=== PATIENT | male | born 1940 | race Caucasian/White ===

== ENCOUNTER 2017-12-01 16:11 | Inpatient (IN) | payer MEDICARE, OTHER ==
[~2017-12-01] VITALS: Ht 177.8 cm; Wt 107.0 kg
[~2017-12-01 16:11] MED LIST: ALLOPURINOL 30300 M2 PO; MOBIC15 MG PO
[2017-12-01] MEDS ORDERED: TYLENOL EXTRA500 MG PO (17:07)
[2017-12-01] MEDS ORDERED: NORVASC5 MG PO (17:08)
[2017-12-01] MEDS ORDERED: ALLOPURINOL 10100 M1 PO (17:08)
[2017-12-01] MEDS ORDERED: ELIQUIS2.5 MG PO (17:09)
[2017-12-01] MEDS ORDERED: BISACODYL SUPP10 MG RECTAL (17:10)
[2017-12-01] MEDS ORDERED: DULCOLAX5 MG PO (17:11)
[2017-12-01] MEDS ORDERED: COLACE100 MG PO (17:12)
[2017-12-01] MEDS ORDERED: TUMS PO (17:12)
[2017-12-01] MEDS ORDERED: NEURONTIN 300300 M1 PO (17:13)
[2017-12-01] MEDS ORDERED: IPRAT-ALBUT 0.5-3 ML INH (17:14)
[2017-12-01] MEDS ORDERED: MILK OF MA2400 MG/10 PO (17:15)
[2017-12-01] MEDS ORDERED: OXYCODONE HCL 55 MG PO (17:16)
[2017-12-01] MEDS ORDERED: VANCO1GM IVPB (17:17)
[2017-12-01] MEDS ORDERED: VITAMIN D2000 UNIT PO (17:18)
[2017-12-01 19:35] VITALS: BP 123/58
--- NOTE | 2017-12-02 01:57 | NUR ---
ASSUMED CARE UPON ADMISSION TO ROOM 326 AT 1930. ADMITTED FROM [facility] PER W/C VAN. PATIENT UP WITH MAX ASSIST OF TWO, PATIENT RELUCTANT TO BEAR WEIGHT ON RIGHT FOOT. STAND PIVOT, MUCH CUEING AND ENCOURAGEMENT. DRESSING TO RIGHT KNEE C/D/I. HAS THREE OPEN SCABBED AREA TO RIGHT FOOT THAT PATIENT STATES IS FROM ABRASIONS FROM THE [facility] AT [facility]. SEE PICTURE. PATIENT ABLE TO MOVE SELF UP IN BED USING ARMS AND HAND HOLDS AT HEAD OF BED. BILAT ANKLES EDEMATOUS. BILAT HEELS OFFLOADED. REFUSES DIANA HOSE, REFUSES TO WEAR YELLOW SOCKS WHILE IN BED. ABLE TO MOVE SIDE TO SIDE, BUT ASSISTED WITH TURNS. MIDLINE IV SITE TO LEFT ARM INTACT, FLUSHES WELL, DRESSING INTACT--WAS CHANGED 12/01 PRIOR TO TRANSFER TO [facility]. REMOVED PANTS AT HS, VOIDS PER URINAL, NURSING EMPTIES. STATES THAT HE HAS BEEN USING SLIDING BOARD AT HOME TO GET ON OFF COMMODE, AND HASN'T BEEN WALKING MUCH AT ALL. INSTRUCTED IN REHAB ROUTINE, USE OF CALL LITE, FALL PRECAUTIONS AND DISCHARGE PLANNING. STATES HE IS NOT IN PAIN UNLESS HE MOVES HIS LEG. REFUSED COLACE AND OTHER LAXATIVES, STATING HE HAS HAD LOOSE STOOLS LATELY. ASSESSMENT COMPLETE, MEDICINES RECONCILED. HOURLY ROUNDS CONTINUE. BED ALARM ON. CALL LITE IN REACH.
[2017-12-02 04:14] LABS: HEMATOCRIT 26.9 % (42.0-52.0); HEMOGLOBIN 8.9 gm/dL (14.0-18.0); MCH 32.4 pg (26.0-34.0); MCHC 33.1 g/dL (28.0-37.0); MCV 97.7 fL (80.0-100.0); MPV 8.7 fl. (7.2-11.1); RBC 2.76 mil/uL (4.50-6.00); RDW-CV 15.6 % (10.5-14.5); WBC 6.6 thou/uL (4.0-11.0)
[2017-12-02 04:44] LABS: CALCIUM 8.5 mg/dL (8.5-10.1); CREATININE 0.7 mg/dL (0.6-1.3); POTASSIUM 4.2 mmol/L (3.5-5.1)
--- NOTE | 2017-12-02 05:25 | NUR ---
SLEPT AFTER ABOUT 2229. SNORING RESPIRATIONS NOTED. MIDLINE IV LINE FLUSHES WELL. ATTEMPTED TO LIE ON SIDE, BUT HIS LEG BEGAN TO HURT AND HE WANTED TO LIE ON BACK DESPITE EDUCATION ABOUT NEEDING TO TURN MORE OFTEN. HOURLY ROUNDS CONTINUE. BED ALARM ON. CALL LITE IN REACH. VOIDS PER URINAL ABOUT EVERY 1-2 HOURS.
[2017-12-02 08:15] VITALS: BP 129/68
--- NOTE | 2017-12-02 16:58 | NUR ---
PATIENT HAS BEEN A/O X 4 THIS SHIFT, APPROPRIATE AND PLEASANT. PATIENT CONTINUES ON SCHEDULED TYLENOL WITH GOOD EFFECT. GIVEN OXY IR X 1 PRIOR TO MORNING SESSION OF PHYSICAL THERAPY. PATIENT PARTICIPATED WITH OCCUPATIONAL AND PHYSICAL THERAPY THIS SHIFT. PATIENT UP TO CHAIR WITH MODERATE ASSIST, GB AND WALKER. PATIENT VOIDING PER URINAL, HAS SPILLED URINAL X 1 THIS SHIFT AND MISSED COMODE WITH URINE THIS MORNING. PATIENT ABLE TO HAVE BM THIS AM. PATIENT TOLERATING DIET, TAKING ORAL FLUIDS IN WELL. DRESSING TO RIGHT KNEE INTACT. MIDLINE PATENT TO LEFT UPPER ARM, IV ANTIBIOTICS INFUSED. PATIENT TO DINING ROOM FOR MEALS. AT BEDSIDE THIS EVENING. HOURLY ROUNDING COMPLETED THIS SHIFT. CALL LIGHT WITHIN REACH. WILL CONTINUE WITH PLAN OF CARE.
[2017-12-02 22:18] VITALS: BP 129/60
--- NOTE | 2017-12-02 22:25 | NUR ---
ASSUMED CARE AT 1930. PATIENT RESTING IN BED. HEELS OFFLOADED ESPECIALLY RLE. BILAT LEGS EDEMATOUS. THREE AREAS TO RIGHT ANKLE C/D/I, HUSEYIN AND IMPROVING. DRESSING TO RT KNEE C/D/I. DRESSING TO LT UPPER ARM IV LINE C/D/I. TOOK SCHEDULED APAP FOR PAIN. NEW ORDER FOR FLEXARIL STARTED TONIGHT, AND STOP DATE FOR VANCO CLARIFIED. OBSERVED SLEEPING ON LATER ROUNDS. DECLINED MEDS FOR BM TONOC. VOIDS PER URINAL. VERBALIZES THAT HE NEEDS TO TURN, BUT HAS DIFFICULTY FINDING POSITIONS THAT DO NOT CAUSE PAIN. HOURLY ROUNDS CONTINUE. BED ALARM ON. CALL LITE IN REACH.
--- NOTE | 2017-12-03 05:18 | NUR ---
HAD TROUBLE SLEEPING. PATIENT C/O LEG CRAMPS DESPITE HS DOSE OF FLEXARIL. OBSERVED GRIMACING WITH APPARENT SPASMS OF LEFT LEG. GAVE OXY IR 5 MG AT 9 (DOSE IS 5-10 MG) AND HAD NO RELIEF AND REPEATED 5 MORE MG AT 213. ALSO GAVE FLEXARIL AGAIN AT 214. SEE MAR. PATIENT STATES THAT HE GETS THESE CRAMPS AT HOME, AND THE ONLY THING THAT HELPS IS TO GET UP INTO A CHAIR. ASSISTED TO RECLINER, UP WITH TWO, CUEING, GAIT BELT, WALKER. PATIENT ELEVATED LEG REST AND PUT OPERATIVE LEG UP ON LEG REST, AND THE OTHER LEG IN DEPENDENT POSITION. WAS READING, AND OBSERVED PATIENT SLEEPING ABOUT 20 MINUTES LATER. NO FURTHER C/O PAIN OR CRAMPING AND APPEARS COMFORTABLE. MIDLINE IV CATHETER FLUSHES WELL, IVPB INFUSED. HOURLY ROUNDS CONTINUE. BED ALARM ON. CALL LITE IN REACH.
[2017-12-03 09:24] VITALS: BP 157/64
[2017-12-03 09:30] VITALS: BP 157/64
--- NOTE | 2017-12-03 17:46 | NUR ---
PATIENT HAS BEEN A/O X 4 THIS SHIFT. CONTINUES ON SCHEDULED TYLENOL FOR RIGHT KNEE PAIN WITH GOOD RELIEF. PATIENT HAVING MUSCLE SPASMS THIS AFTERNOON AND FLEXERIL GIVEN WITH PARTIAL RELIEF. PATIENT CONTINUES ON IV ANTIBIOTICS, LEFT UPPER ARM MIDLINE PATENT AND WORKS WELL. PATIENT UP WITH 2 PERSON ASSIST TO WHEELCHAIR WITH GB AND WALKER. PATIENT COMPLETED GROOMING AND BATHING THIS SHIFT WITH MINIMAL ASSIST. PATIENT SUPERVISION WITH UPPER BODY DRESSING. PATIENT ABLE TO HAVE BM THIS SHIFT, ASSISTED PATIENT TO BATHROOM WITH WHEELCHAIR, WALKER, GB AND USING GRAB BAR. PATIENT ABLE TO DO OWN REGULO-CARE, NEEDS HELP WITH CLOTHING MANAGEMENT. PATIENT EATING WELL AND TAKING ORAL FLUIDS WELL. DRESSING INTACT TO RIGHT KNEE. PATIENT'S AT BEDSIDE THIS AFTERNOON. HOURLY ROUNDING COMPLETED. CALL LIGHT WITHIN REACH. WILL CONTINUE WITH PLAN OF CARE.
[2017-12-03 20:42] VITALS: BP 139/61
--- NOTE | 2017-12-04 00:01 | NUR ---
ASSUMED CARE AT 1930. PATIENT RESTING IN BED UNTIL AROUND 2014 AND THEN WANTED TO SIT ON SIDE OF BED. C/O LEG CRAMPS ON RIGHT LEG. SITTING ON SIDE OF BED HELPED FOR A WHILE, BUT LATER WANTED TO REST IN RECLINER WITH LEGS UP THAT HELPS THE MOST. MEDICINES REVIEWED WITH PATIENT. PATIENT IS DOUGLAS AND NEEDS MUCH REINFORCEMENT. THOUGHT HE GOT TWO DIFFERENT MUSCLE RELAXERS WHEN HE WAS TOLD HE COULD HAVE IT AT BEDTIME AND NEEDED, WHEN IN REALITY THIS WAS FLEXARIL SCHEDULED AT HS AND Q6H PRN. OFFERED OXYIR, BUT PATIENT REFUSED. DID TAKE SCHEDULED APAP. UP WITH MOD LIFTING ASSIST, GAIT BELT, WALKER, TO RECLINER WITH EXTRA TIME AND CUEING. WBAT RLE. DOES NOT APPEAR TO PUT MUCH WEIGHT ON RLE. ISLAND DRESSING C/D/I. SCABS TO RT FOOT SCULPTURE INSTRUCTOR AND APPEAR HEALING. REFUSES DIANA HOSE. ENCOURAGED TO ELEVATE LEGS WHILE IN RECLINER, AND WHILE IN RECLINER HEELS ARE OFFLOADED. VOIDS PER URINAL. MIDLINE IV DRESSING C/D/I TO LT UPPER ARM. INSTRUCTED TO CHANGE POSITIONS WHILE IN CHAIR AND LIE ON SIDE IN BED WHEN POSSIBLE. VERBALIZED UNDERSTANDING BUT HAS DIFFICULTY FINDING COMFORTABLE POSITION OTHER THAN SEMIFOWLERS. HOURLY ROUNDS CONTINUE. BED ALARM ON. CALL LITE IN REACH.
--- NOTE | 2017-12-04 01:24 | NUR ---
FOUND PATIENT SLEEPING WITH LEGS DEPENDENT AND LEG REST DOWN WHILE IN RECLINER. PATIENT STILL C/O CRAMPING WHEN HIS LEGS ARE NOT STRAIGHT DOWN AND DEPENDENT WITH 90 DEGREE ANGLE OF HIS KNEES. GIVEN FLEXARIL AT THIS TIME. PATIENT STATED THAT HE DIDN'T HAVE CRAMPS WHEN HIS LEGS WERE COMPLETELY DEPENDENT. EDUCATED ABOUT NEED TO PREVENT DEPENDENT EDEMA, AND THAT HIS OPERATIVE KNEE SHOULD NOT BE BENT ALL THE TIME FOR PROPER HEALING. BROUGHT STOOL AND PADDED IT SO HIS LEGS COULD BE ABOUT 8 INCHES OFF THE FLOOR. PATIENT STATED HE HAD TWO CRAMPS SHORTLY AFTER IT WAS PLACED. STATED HE HAD CRAMPS WHILE HIS LEGS WERE FULLY EXTENDED. PATIENT ALSO STATED THAT HE HAS HAD THESE CRAMPS AT HOME BEFORE HIS LAST SURGERY. PATIENT IS ATTEMPTING TO LIE ON DIFFERENT SIDES WHILE IN RECLINER, WAS ON LEFT AND NOW MORE ON RIGHT. IVPB STARTED TO LUE MIDLINE, TOLERATING WELL. HOURLY ROUNDS CONTINUE.
--- NOTE | 2017-12-04 05:49 | NUR ---
HAS BEEN RESTING IN RECLINER MUCH OF NIGHT. SITTING ON WAFFLE CUSHION, PILLOWS POSITIONED ON SIDES TO OFFLOAD. HAS CHANGED POSITIONS IN RECLINER OFTEN TO AVOID CRAMPING. HAS HAD LEG RESTS UP SOMETIMES, OTHER TIMES DOWN. WARM BLANKETS PER REQUEST. DRESSING C/D/I. UP WITH MOD LIFTING ASSIST, STEADYING ASSIST TO CHANGE POSITIONS AT TIMES. ENCOURAGED SLEEPING IN BED TO BETTER OFFLOAT BUTTOCKS, BUT REFUSED WITH C/O CRAMPING. HOURLY ROUNDS CONTINUE. BED ALARM ON. CALL LITE IN REACH.
[2017-12-04 08:00] VITALS: BP 127/59
--- NOTE | 2017-12-04 12:02 | NUR ---
Nutrition: Pt admitted to Rehab with Rt TKA revision. Wt: 240#. Heart Healthy diet, eating 100%. +BM, watery. Labs, RX, Hx noted. Appears at low nutrition risk. Will follow weekly.
--- NOTE | 2017-12-04 17:15 | NUR ---
SHIFT NOTE - PT PARTICIPATED IN ALL THERAPIES TODAY. PT ABLE TO AMBULATE WITH WALKER FROM BED TO BATHROOM WITH MOD ASSIST. LT UPPER ARM IV INTACT AND FLUSHES WITHOUT DIFFICULTY.
[2017-12-04 20:09] VITALS: BP 92/72
--- NOTE | 2017-12-04 21:30 | NUR ---
SITTING UP IN RECLINER READING. STATES RIGHT KNEE PAIN AT A "2". SCHEDULED TYLENOL GIVEN. STATES TOO UNCOMFORTABLE FOR HIS KNEE TO SLEEP IN THE BED. TOOK MEDICATIONS WHOLE WITH WATER.
--- NOTE | 2017-12-05 05:41 | NUR ---
USED URINAL X TWO DURING THE NIGHT. GOOD BLOOD RETURN FROM LEFT UPPER SINGLE LUMEN PICC LINE. NO COMPLAINTS VOICED. HOURLY ROUNDING IN PROGRESS.
--- NOTE | 2017-12-05 08:56 | NUR ---
SW met with pt to complete initial assessment, introduce self, and SW role on rehab unit. Pt alert, oriented, pleasant. Pt lives at home with his . Pt has a RW and a wc. Pt goal to be able to walk more and strengthen both of his legs. SW to continue to follow to assist with safe dc planning.
[2017-12-05 09:18] VITALS: BP 119/72
--- NOTE | 2017-12-05 15:21 | NUR ---
WOUND CARE NOTE: CONSULT RECEIVED FOR RED AREA/BLISTER BUTTOCKS. PATIENT PRESENTS WITH TWO AREAS OF BLANCHABLE REDNESS TO RIGHT BUTTOCK. DO NOT OBSERVE ANY BLISTERS, HOWEVER BELIEVE THAT HIS HAIR FOLICLES ARE MORE PROMINENT. BARRIER OINTMENT HAD BEEN APPLIED BY PATIENT'S RN. PATIENT DOES HAVE PAIN UPON PALPATION. PATIENT ADMITS TO SLEEPING IN RECLINER DUE TO MUSCLE CRAMPS. PATIENT IS CURRENTLY ON HIS RIGHT SIDE, PATIENT FEELS COMFORTABLE LIKE THIS AND UNDERSTANDS THE NEED TO KEEP OFF OF THE AREA TO PREVENT ANY BREAKDOWN. PATIENT ALSO HAS 3 DRY PURPLE DISCOLORATIONS TO HIS LEFT FOOT. INTACT, STABLE. PATIENT ALSO HAD ME LOOK AT AN AREA ON HIS EAR. RAISED AREA JUST DISTAL TO THE TRAGUS. NO S/S OF INFECTION. UNSURE OF ETIOLOGY, BUT APPEARS TO HAVE WHITE/YELLOW SUBSTANCE. NO FLUCTUANCE, AREA IS FIRM. RECOMMEND TURN Q2 HOURS-MUST STAY OFF WOUND. WAFFLE CUSHION IF MUST BE IN CHAIR LIMIT TIME IN CHAIR BARRIER OINTMENT BID AND PRN MONITOR RIGHT BUTTOCKS CLOSELY FOR ANY BREAKDOWN ENCOURAGE GOOD NUTRTION/HYDRATION
--- NOTE | 2017-12-05 17:07 | NUR ---
ASSUMMED CARE OF PT AT 0730, PT ALERT AND ORIENTED, HARD OF HEARING, TRANSFERS WITH SBA, GB WALKER CUEING, PT SITTING IN RECLINER MUCH OF AM, STATES HIS LEG SPASMS FEEL BETTER WHEN HE IS IN CHAIR VS LAYING IN BED, WAFFLE CUSHION IN CHAIR AND PT ENCOURAGED TO REPOSITION, RED AREA MOTED ON RIGHT BUTTOCK, BARRIER OINTMENT APPLIED, WD NURSE CONSULTED, MIDLINE IV PATENT, MEDICATED FOR PAIN PER ORDERS, PT WAS AGREEABLE TO LAYING ON SIDE IN BED THIS AFTERNOON, TO DININGROOM FOR MEALS, TAKING FOOD AND FLUIDS WELL, BM X 1 THIS SHIFT, VOIDS PER URINAL, PT PARTICIPATED IN ALL THERAPIES, HOURLY ROUNDING COMPLETED, ASSESSMENT COMPLETE, WILL CONTINUE TO MONITOR.
--- NOTE | 2017-12-05 20:10 | NUR ---
RESTING QUIETLY IN BED AND READING. HAS ICE TO RIGHT KNEE. PAIN MEDICATION GIVEN FOR COMPLAINT OF RIGHT KNEE PAIN. TOOK MEDICATIONS WHOLE WITH WATER.
[2017-12-05 20:38] VITALS: BP 124/54
--- NOTE | 2017-12-06 05:35 | NUR ---
RESTED ON/OFF. ASSISTED WITH REPOSITIONING. GIVEN OXY IR PER REQUEST FOR COMPLAINT OF RIGHT KNEE PAIN AT 2100 WITH GOOD RELIEF UNTIL THIS MORNING. GIVEN OXY IR AT 0510 FOR COMPLAINT OF RIGHT KNEE PAIN OF A "10". ICE APPLIED TO RIGHT KNEE ALSO. HOURLY ROUNDING IN PROGRESS.
[2017-12-06 08:17] VITALS: BP 122/74
--- NOTE | 2017-12-06 10:55 | NUR ---
I have reviewed the documentation by SHANELL DE LOS SANTOS from 12/06/17 and I concur with it. HUMPHREY CONDON
--- NOTE | 2017-12-06 15:21 | NUR ---
I have reviewed the documentation by SHANELL DE LOS SANTOS from 12/06/17 and I concur with it. HUMPHREY CONDON
--- NOTE | 2017-12-06 15:25 | NUR ---
SW met with pt and reviewed team conference summary and plan for pt to remain on rehab unit at least one more week with plan for team to reassess pt length of stay during team conference on next Monday. Pt in agreement with plan. SW to continue to follow to assist with safe dc planning.
--- NOTE | 2017-12-06 18:17 | NUR ---
ASSUMED CARE AT 0730 PATIENT ALERT/ORIENTED, PAIN MEDS GIVEN THIS SHIFT FOR RIGHT KNEE PAIN, UP WITH ASSIST OF ONE AND WALKER/GAIT BELT, TO DINING ROOM FOR MEALS, BED/CHAIR ALARMS IN PLACE, CALL LIGHT IN REACH. PARTICIPATED IN ALL THERAPIES TODAY, HOURLY ROUNDING COMPLETED, DRESSING TO RIGHT KNEE CLEAN/DRY/INTACT. IV SITE TO EVELYNE WITH ANTIBIOTICS INFUSING WITH NO DIFFICULTIES.
[2017-12-06 20:50] VITALS: BP 117/60
--- NOTE | 2017-12-07 01:31 | NUR ---
ASSUMED CARE @ 1932-.APPEARS SLEEPING IN BED W/ HOB UP.URINAL W/IN REACH.CLAIMS DID NOT SLEEP GOOD LAST NIGHT.AWAKENED @ 1954 FOR HS MEDS.BED ALARM PUT ON @ 1954.EDEMA-+1 PITTING RIGHT LEG,FEET & ANKLES.NURSE EMPTIES URINAL @ NIGHT.TEMP @ 2049-99.2 ORAL.TEMP RE-CHECKED @ 2254-98.5 ORAL.MOISTURE BARRIER CREAM APPLIED TO PINK/RED BUTTOCKS @ 1999.SEE PAIN MANAGEMENTS @ 2024 & 2253.SEE POSITION CHANGE CHARTING.ON HOURLY ROUNDS.REFUSED PAPER PAD. REQUESTED ICE PACKS X2 ON RIGHT KNEE & APPLIED @ 0000.BROUGHT OWN ICE PACKS W/ BAGS.
--- NOTE | 2017-12-07 05:43 | NUR ---
SLEEPING SINCE 1933.AWAKE @ INTERVALS DURING NIGHT.CLAIMS SLEPT BETTER TONIGHT.USED URINAL X6 DURING NIGHT.REFUSED HS SNACK.SEE 3RD PAIN MANAGEMENT @ 0514.RIGHT HEEL PINK @ 0525 & ELEVATED OFF BED @ 0525.REFUSED HEELS OFF BED @ HS.APOLOGIZED FOR BEING GROUCHY EARLY PART OF SHIFT.PLEASANT REST OF SHIFT/NIGHT.
[2017-12-07 08:46] VITALS: BP 136/63
--- NOTE | 2017-12-07 10:50 | NUR ---
I have reviewed the documentation by SHANELL DE LOS SANTOS from 12/07/17 and I concur with it. HUMPHREY CONDON
--- NOTE | 2017-12-07 18:51 | NUR ---
ASSUMED CARE AT 0730 PATIENT ALERT/ORIENTED, PAIN MEDS GIVEN X2 THIS SHIFT WITH GOOD RELIEF, UP WITH ONE AND WALKER/GAIT BELT, TO DINING ROOM FOR MEALS, PARTICIPATED IN ALL THERAPIES TODAY, BED/CHAIR ALARMS IN PLACE, CALL LIGHT IN REACH, HOURLY ROUNDING COMPLETED. DRESSING TO RIGHT KNEE CLEAN/DRY/INTACT.
[2017-12-07 20:24] VITALS: BP 139/68
[2017-12-08 04:47] LABS: ABSOLUTE BASOPHILS 0.1 thou/uL (0.0-0.2); ABSOLUTE EOSINOPHILS 0.6 thou/uL (0.0-0.7); ABSOLUTE LYMPHOCYTES 1.2 thou/uL (0.8-5.3); ABSOLUTE MONOCYTES 0.9 thou/uL (0.0-1.2); ABSOLUTE NEUTROPHILS 4.5 thou/uL (1.6-8.1); BASOPHILS 1.2 %; EOSINOPHILS 8.2 %; HEMATOCRIT 29.6 % (42.0-52.0); HEMOGLOBIN 9.7 gm/dL (14.0-18.0); LYMPHOCYTES 15.9 %; MCHC 32.9 g/dL (28.0-37.0); MCV 97.4 fL (80.0-100.0); MONOCYTES 12.6 %; NUCLEATED RBCS 0 /100WBC; PLATELET COUNT* 312 thou/uL (150-400); POLYS 62.1 %; RBC 3.04 mil/uL (4.50-6.00); RDW-CV 15.5 % (10.5-14.5); WBC 7.3 thou/uL (4.0-11.0)
[2017-12-08 05:01] LABS: ALBUMIN 2.9 g/dL (3.4-5.0); CALCIUM 8.6 mg/dL (8.5-10.1); CREATININE 0.9 mg/dL (0.6-1.3); POTASSIUM 4.5 mmol/L (3.5-5.1); TOTAL BILIRUBIN 0.3 mg/dL (<0.1-1.0); TOTAL PROTEIN 6.3 g/dL (6.4-8.2)
--- NOTE | 2017-12-08 05:20 | NUR ---
PT SLEPT MOST OF SHIFT. ASSESSMENT DOCUMENTED, MEDS GIVEN PER E-MAR. PAIN MEDS GIVEN PER E-MAR PER PT REQUEST. ICE PACK REMAINED ON RIGHT KNEE THIS SHIFT. PT REPOSITIONED THROUGH NIGHT. MIDLINE PATENT. WILL CONTINUE WITH PLAN OF CARE.
[2017-12-08 06:06] LABS: ESR (SEDRATE) 50 mm/hr (0-20)
[2017-12-08 08:37] VITALS: BP 112/62
--- NOTE | 2017-12-08 13:39 | NUR ---
I have reviewed the documentation by SHANELL DE LOS SANTOS from 12/08/17 and I concur with it. HUMPHREY CONDON
--- NOTE | 2017-12-08 14:58 | NUR ---
REPORT GIVEN TO TERELL OSORIO
--- NOTE | 2017-12-08 16:09 | NUR ---
I have reviewed the documentation by SHANELL DE LOS SANTOS from 12/08/17 and I concur with it. HUMPHREY CONDON
--- NOTE | 2017-12-08 17:43 | NUR ---
TOOK OVER CARE OF PATIENT AT 1500, AGREE WITH THE PREVIOUS NURSES ASSESSMENT. PATIENT HAS HAD NO COMPLAINTS OF ANY KIND SINCE TAKING OVER CARE. CALL LIGHT IS IN REACH WILL CONTINUE TO MONITOR.
[2017-12-08 20:20] VITALS: BP 131/69
--- NOTE | 2017-12-09 01:03 | NUR ---
ASSUMED CARE AT 1930. PATIENT RESTING IN BED. ANTIBIOTICS INFUSING PER MIDLINE IV LINE, FLUSH WELL AFTER COMPLETION. DRESSING TO IV C/D/I. TAKES PILLS WHOLE WITH WATER. DRESSING TO RT KNEE C/D/I. SCABS TO RT FOOT C/D/I STOCK RECEIVER AND IMPROVING. MOISTURE BARRIER APPLIED TO BUTTOCKS. PATIENT TOLD NURSE THAT HE NEEDED TO STAY OFF HIS BACK BECAUSE HE KNOWS THAT HE HAS A REDDENED AREA THERE. YET, WHEN WE ATTEMPTED TO HAVE HIM TURN AROUND MIDNIGHT, HE REFUSED, INSISTED ON LYING ON BACK STATING, "I HAVE ALREADY TURNED MYSELF." WILL CONTINUE TO ATTEMPT TO HAVE HIM OFFLOAD HIS BUTTOCKS. REFUSES TO HAVE PILLOW UNDER HEELS TO OFF LOAD ALSO. VOIDS PER URINAL. DID HAVE BM PER TOILET WITH RISER. REFUSED TO WALK TO TOILET, STATING THAT EVERYONE ELSE PUTS HIM IN A W/C AND WHEELS HIM THERE. NEEDED CUEING TO COMPLETE TRANSFER TASKS IN BR. DID VOID ON FLOOR BEYOND TOILET AFTER SITTING ON TOILET. CLOTHING CHANGED. MEDICATED WITH APAP AT HS PER SCHEDULE, REFUSES ANYTHING STRONGER. HOURLY ROUNDS CONTINUE. BED ALARM ON. CALL LITE IN REACH.
--- NOTE | 2017-12-09 05:41 | NUR ---
OBSERVED SLEEPING MUCH OF THE NIGHT. C/O RLE PAIN AND CRAMPING. GIVEN OXYIR AND FLEXARIL AT 0305. OBSERVED SLEEPING SOUNDLY ON ROUNDS, AND RETURNED TO SLEEP IMMEDIATELY AFTER THIS NURSE HUNG VANCO. HAS BEEN ON RIGHT SIDE, REFUSES TO TURN TO OTHER SIDE, BUT HE IS OFF HIS BUTTOCKS. VERBALIZES UNDERSTANDING OF NEED TO OFFLOAD BUTTOCKS, BUT C/O CRAMPING AND PAIN IF HE MOVES DIFFERENTLY. HOURLY ROUNDS CONTINUE. BED ALARM ON. CALL LITE IN REACH.
[2017-12-09 07:38] VITALS: BP 128/58
--- NOTE | 2017-12-09 17:48 | NUR ---
ASSUMED CARE AT 0730 PATIENT ALERT/ORIENTED, PAIN PILL GIVEN X1 THIS SHIFT FOR RIGHT KNEE PAIN, ICE PACK TO RIGHT KNEE. UP WITH ASSIST OF ONE AND WALKER, TO DINING ROOM FOR MEALS, BED/CHAIR ALARMS IN PLACE, CALL LIGHT IN REACH, HOURLY ROUNDING COMPLETED. PARTICIPATED IN ALL THERAPIES TODAY, IV ANTIBIOTICS INFUSING TO LEFT UPPER ARM MIDLINE WITH NO DIFFICULTIES.
[2017-12-09 21:10] VITALS: BP 121/61
--- NOTE | 2017-12-10 02:24 | NUR ---
ASSUMED CARE @ -SAT.APPEARS SLEEPING IN BED W/ HOB UP 45 DEGREES. ON HIS BACK.URINAL W/IN REACH.AWAKE NOW @ 2104.WATCHING TV.REQUESTED ICE PACKS X2 TO RIGHT KNEE & APPLIED @ 2124.SEE PAIN MANAGEMENTS @ 2115 & -SUN. NURSE EMPTIES URINAL @ NIGHT.REFUSED HEELS OFF BED.RIGHT HEEL-NOT RED.BED ALARM PUT ON @ 2129.SEE POSITION CHANGE CHARTING.ON HOURLY ROUNDS.
--- NOTE | 2017-12-10 05:35 | NUR ---
SLEPT EARLY SINCE 193.USED URINAL X4.REFUSED HS SNACK.SLEPT GOOD DURING NIGHT.
[2017-12-10 07:49] VITALS: BP 126/68
--- NOTE | 2017-12-10 08:16 | H ---
[place] [address] HISTORY AND PHYSICAL Name: CASEY FLOREZ Room: [address] IN [facility].#: [id number] Admission: 12/01/17 Attend Phys: Hanh Lopez DO Discharge: Date of : 44 Report #: [id number] THIS REPORT FOR: //name// CC: Linda Lopez HISTORY OF PRESENT ILLNESS: This is a 77-year-old male admitted to inpatient rehabilitation to facilitate safe discharge home, status post acute hospitalization beginning on 11/27/2017 wherein he had a right total knee arthroplasty, status post removal of the antibiotic spacer and basically a revision. He had a right total knee arthroplasty and revision in 02/2017. He fell on the right knee on , sustained a patellar tendon rupture and in 04/2017 was doing well until 07/2017 when he presented with a right knee infection. Taken to surgery, revision was done, antibiotic spacer was placed, removal of hardware, 6 weeks of IV antibiotics and nonweightbearing. He is now participating in physical and occupational therapy and appropriate for acute inpatient rehabilitation. No significant changes since the preadmission screening. Previous level of function prior to the initial surgical intervention was modified independent to independent with activities of daily living. Current level of function is minimum assistance to dependent depending on therapy, activity and time of day. His comprehension, expression, social interaction, problem solving and memory are within normal limits. Estimated length of stay is 14-16 days with discharge disposition to the home setting where he has a spouse, lives in a ranch style home, no steps to enter, and he does have a ramp available for use. He also has a son in the area. PAST MEDICAL HISTORY: Hypertension, gout, obstructive sleep apnea, anxiety, anemia. PAST SURGICAL HISTORY: Colectomy, bilateral rotator cuff repair, right total knee replacement, left total knee replacement, right total knee antibiotic spacer placement and removal of hardware, and a right patellar tendon rupture repair. ALLERGIES: No known drug allergies. SOCIAL HISTORY: No tobacco, alcohol or illicit drug use. MEDICATIONS: Reviewed and reconciled by myself. FAMILY HISTORY: Heart disease. REVIEW OF SYSTEMS: A 14-point review of systems is done and is negative except as mentioned in HPI, specifically no fever, chest pain, shortness of breath, abdominal pain or distention. PHYSICAL EXAMINATION: [place] [address] HISTORY AND PHYSICAL Name: CASEY FLOREZ Room: [address] IN [facility]#: [id number] Admission: 12/01/17 Attend Phys: Hanh Lopez DO Discharge: Date of : 44 Report #: [id number] GENERAL: Alert, oriented, in no apparent distress. VITAL SIGNS: Reviewed and are stable. HEENT: Head atraumatic, normocephalic. Pupils equal, round, reactive. ABDOMEN: Soft, nontender, nondistended. NEUROLOGIC: Cranial nerves 2-12 are grossly intact. No focal neuro deficits, 5/5 strength in the bilateral upper and lower extremities. SKIN: Warm and dry. No rashes or lesions noted. MUSCULOSKELETAL: No clubbing, cyanosis or edema. ASSESSMENT: 1. Status post right total knee arthroplasty post revision, removal of hardware, antibiotic spacer, IV antibiotics and now further replacement of hardware. 2. Alterations in activities of daily living from a previously modified independent to independent level of function. 3. Multiple medical comorbidities requiring acute medical care on a daily basis. PLAN: 1. Admission to inpatient rehabilitation to facilitate safe discharge home. 2. PT, OT, case management, nursing and HIMS to make evaluations and recommendations. 3. Plan of care and team meeting are pending. 4. We will start Flexeril at night for some right leg spasms as well as p.r.n. during the day. <ELECTRONICALLY SIGNED> By: Hanh Lopez DO 12/10/17 0816 1611 [id number] Lopez DO /nt
--- NOTE | 2017-12-10 08:16 | PLAN ---
[address] [address] REHAB UNIT PLAN OF CARE Name: CASEY FLOREZ Room: [address] IN [facility].#: [id number] Admission: 12/01/17 Attend Phys: Hanh Lopez DO Discharge: Date of : 44 Report #: [id number] THIS REPORT FOR: //name// CC: Linda Lopez DATE OF SERVICE: 12/02/2017 Overall Plan of Care This is a 77-year-old male status post right total knee arthroplasty after removal of antibiotic spacer and hardware, as well as IV antibiotics. He also has multiple medical comorbidities. Previous level of function was independent to modified independent with activities of daily living. Current level of function is minimum assistance to dependent with physical and occupational therapy depending on therapy, activity, and time of day. His speech and language pathology needs are within functional limits. MEDICAL PROGNOSIS: Good. REHABILITATION PROGNOSIS: Good. Estimated length of stay is 14 to 16 days with discharge disposition to the home setting with supportive family where he has a ranch style house, a ramp, no steps to enter, and a supportive spouse, as well as a son. Physical therapy will see the patient 60 to 90 minutes per day, 5 days per week, working on upper and lower body strength, balance, coordination, navigation. Occupational therapy will work with the patient 60 to 90 minutes per day, 5 days per week, working on upper and lower body strength, balance, coordination, navigation, bathing, dressing, and toileting. This is an overall plan of care, may change from time to time. We will team weekly and make changes to the plan of care as needed. <ELECTRONICALLY SIGNED> By: Hanh Lopez DO 12/10/17 0816 1613 [id number] Lopez DO /nt
[2017-12-10 15:55] LABS: ABSOLUTE BASOPHILS 0.1 thou/uL (0.0-0.2); ABSOLUTE EOSINOPHILS 0.6 thou/uL (0.0-0.7); ABSOLUTE MONOCYTES 0.8 thou/uL (0.0-1.2); ABSOLUTE NEUTROPHILS 4.5 thou/uL (1.6-8.1); BASOPHILS 1.5 %; EOSINOPHILS 8.2 %; HEMATOCRIT 30.8 % (42.0-52.0); HEMOGLOBIN 10.1 gm/dL (14.0-18.0); LYMPHOCYTES 14.4 %; MCH 31.9 pg (26.0-34.0); MCHC 32.9 g/dL (28.0-37.0); MONOCYTES 11.9 %; MPV 7.4 fl. (7.2-11.1); NUCLEATED RBCS 0 /100WBC; PLATELET COUNT* 338 thou/uL (150-400); RBC 3.18 mil/uL (4.50-6.00); RDW-CV 16.1 % (10.5-14.5)
--- NOTE | 2017-12-10 18:39 | NUR ---
ASSUMED CARE AT 0730 PATIENT ALERT/ORIENTED, UP WITH ASSIST OF ONE AND WALKER/GAIT BELT. PT HAS PAIN TO RIGHT KNEE HAS SCHEDULED TYLENOL, REFUSING ANYTHING STRONGER DUE TO CONSTIPATION, PATIENT TAKES MIRALAX AND COLACE. HAS ICE PACK PRN TO RIGHT KNEE. HOURLY ROUNDING COMPLETED, BED/CHAIR ALARMS IN PLACE, CALL LIGHT IN REACH, VISITING THIS AFTERNOON, INQUIRED ABOUT DR APPOINTMENT, NOTE LEFT WITH FLAVIA TO CALL TO CONFIRM APPT WITH SURGEON ON 12/14/17. ENCOURAGED TO COME IN DURING THERAPY TO TALK WITH THERAPIST ON HOW PATIENT IS ADVANCING WITH THERAPIES.
[2017-12-10 20:40] VITALS: BP 97/64
--- NOTE | 2017-12-11 01:38 | NUR ---
ASSUMED CARE @ 1916-12/10-MONDAY.AWAKE IN BED W/ HOB UP 45 DEGREES.WATCHING TV & READING POCKET BOOK @ THE SAME TIME.URINAL W/IN REACH.NURSE EMPTIES URINAL @ NIGHT.BED ALARM PUT ON @ 2039.EDEMA-+1 PITTING FEET & ANKLES.ICE PACKS TO RIGHT KNEE CONTINOUS DURING NIGHT.REFUSED HEELS OFF BED @ NIGHT.HEELS-NOT RED. SEE PAIN MANAGEMENT @ 2108.MOISTURE BARRIER CREAM APPLIED TO DRY,SCABBED AREA RIGHT BUTTOCK @ 2114.ANVIK-DOES NOT WEAR HEARING AIDS.SEE POSITION CHANGE CHARTING.ON HOURLY ROUNDS.
[2017-12-11 04:13] LABS: HEMATOCRIT 31.1 % (42.0-52.0); HEMOGLOBIN 10.1 gm/dL (14.0-18.0); MCH 31.5 pg (26.0-34.0); MCHC 32.5 g/dL (28.0-37.0); MCV 96.8 fL (80.0-100.0); RBC 3.21 mil/uL (4.50-6.00); RDW-CV 15.6 % (10.5-14.5); WBC 7.6 thou/uL (4.0-11.0)
[2017-12-11 04:50] LABS: CALCIUM 8.5 mg/dL (8.5-10.1); CREATININE 0.9 mg/dL (0.6-1.3); POTASSIUM 4.7 mmol/L (3.5-5.1)
--- NOTE | 2017-12-11 05:29 | NUR ---
SLEEPING SINCE 2200.DOES NOT WANT TO BE AWAKENED TO TURN.AT 0200-FOUND URINAL INSIDE PANTS.AWAKENED PATIENT TO REMOVE URINAL & EMPTY IT IF HAS URINE.BUT URINAL EMPTY.BECAME UPSET BECAUSE RN HAS TO WAKE HIM UP TO CHECK URINAL INSIDE PANTS.APPEARS SLEEPING @ 0400.FOUND ON HIS RIGHT SIDE.TURNED SELF TO RIGHT SIDE.USED URINAL X3 DURING NIGHT.NURSE EMPTIES URINAL @ NIGHT.REFUSED HS SNACK.
[2017-12-11 07:45] VITALS: BP 123/74
--- NOTE | 2017-12-11 10:56 | NUR ---
SW was informed about pt appt with Dr Rosales at [facility] on 12/14 at 9:20 am. SW called pt at cell number: [phone]. Pt did not answer so SW left a detailed message requesting call back to follow up about details of appt and SW to arrange for transportation when needed. SW to continue to follow to assist with safe dc planning.
--- NOTE | 2017-12-11 17:04 | NUR ---
PATIENT REMAINS ALERT AND ORIENTED. TYLENOL GIVEN SCHED FOR PAIN. 3 MODERATE BOWEL MOVEMENTS TODAY, BUT PATIENT STILL FEELS CONSTIPATED. OFFERED SUPPOSITORY BUT PATIENT WANTS TO WAIT . REFUSED LUNCH DUE TO UPSET STOMACH. BARRIER CREAM TO SCABBED AREA ON RIGHT BUTTOCKS PER PATIENT REQUEST. PARTICIPATED WITH THERAPY. TRANSFERS TO COMMODE/CHAIR WITH ASSIST OF 1, GB, AND WALKER. ICE PACK TO RIGHT KNEE. DRESSING C/D/I. IV ABX INFUSING THROUGH LEFT MIDLINE. MIDLINE FREE OF REDNESS/DRAINAGE/ OR EDEMA. VISITED THIS AFTERNOON. CALL LIGHT WITHIN REACH. WILL CONTINUE TO MONITOR.
[2017-12-11 20:00] VITALS: BP 146/64
--- NOTE | 2017-12-12 05:23 | NUR ---
ASSUMED CARE AT 1920. ALERT AND ORIENTED. PLEASANT. PT WORRIED ABOUT CONSTIPATION. ALREADY RECEIVED LAXATIVES AND SUPPOSITORY. DID HAVE FEW STOOLS TODAY WELL BUT PT IS STILL CONCERNED. MOD ASSIST WITH GAIT BELT AND WALKER. NEEDS LIFTING ASSIST TO STAND. UP TO BATHROOM. DOES OWN CARES. BARRIER CREAM APPLIED TO BUTTOCKS. OTHERWISE USES URINAL AND RN EMPTIES. C/O PAIN TO RIGHT KNEE. SCHEDULED TYLENOL AND ICE PACKS GIVEN. MIDLINE CATHETER TO EVELYNE FLUSHES WELL. PT DID NOT WANT TO GET WOKEN UP AND SO REFUSED TO TURN MOST OF THE NIGHT. SLEPT FOR SHORT TIME. CALL LIGHT IN REACH AND BED ALARM ON.
[2017-12-12 08:00] VITALS: BP 119/67
--- NOTE | 2017-12-12 11:35 | NUR ---
RESUMED CARE THIS AM, SEE ASSESSMENT FOR DETAILS, KOBUK, ALERT, DIFFICULTY SEQUENCING EVEN MINIMAL TASKS, OFTEN CONFUSED WITH WHAT TO DO NEXT. DSG IS C/D/I TO R KNEE, WILL HAVE SUTURES REMOVED BY ORTHO ON . BATHED, SHAVED, DRESSED THIS AM, LON DIET WELL, COMPLIANT WITH MEDS/CARES, LON THERAPIES WELL, SLOW TO PROGRESS TOWARD GOALS, CARE PLAN REVIEWED WITH PATIENT, DENIES QUESTIONS AT THIS TIME, CALL LIGHT IN REACH, CONT POC.
--- NOTE | 2017-12-12 11:46 | NUR ---
SW met with pt and pt to follow up about whether or not pt will be going to appt on or not. MATHEW explained that after the team conference tomorrow, SW should know better whether pt will have deepthi removed in the hospital, what recommendations are for IV abx, and more details about dc planning. Pt and pt did not express any other questions or concerns at this time.
--- NOTE | 2017-12-12 17:01 | NUR ---
ABD XRAY SHOWS OBSTIPATION, CHRONIC. PATIENT PLACED ON TOILET HOURLY SCHEDULE ALLOWS. DID HAVE MIRALAX AND DOCUSATE THIS AM, SKIPPING SUPPER, LON IV ABT THERAPY WELL.
[2017-12-12 21:05] VITALS: BP 130/68
--- NOTE | 2017-12-12 21:10 | NUR ---
TRANSFERRED FROM BED TO WHEELCHAIR WITH CGA, GAITBELT, WALKER, STAND, PIVOT EARLY IN THE SHIFT TO GO TO THE BATHROOM. NO BM. DRESSING OVER RIGHT KNEE DRY/INTACT. STATES RIGHT KNEE PAIN AT A "1". SCHEDULED TYLENOL AND FLEXERIL GIVEN. TOOK MEDICATIONS WHOLE 4 AT A TIME WITH WATER. VOIDED YELLOW URINE PER URINAL.
--- NOTE | 2017-12-13 05:28 | NUR ---
USED URINAL X 3 DURING THE NIGHT. WOULD ONLY AGREE TO BEING REPOSITIONED X TWO DURING THE NIGHT. TOOK ONLY 500 MG OF THE 1000MG SCHEDULED TYLENOL THIS MORNING FOR COMPLAINT OF RIGHT KNEE PAIN RATED "1". DID REQUEST ICE TO THE RIGHT KNEE DURING THE NIGH WHICH WAS PROVIDED. HOURLY ROUNDING IN PROGRESS.
[2017-12-13 08:02] VITALS: BP 134/68
--- NOTE | 2017-12-13 17:03 | NUR ---
MATHEW and Dr Lopez met with pt to review team conference summary with pt. Plan for pt to remain on rehab unit in therapies one more week with reteam and dc on next Wednesday 12/20. MATHEW also discussed pt does not need to go to appt tomorrow and order can be received to remove deepthi here as well as ortho to consult. MATHEW met with pt and pt later to review dc plan and pt was somewhat concerned that pt may not be ready to dc home. MATHEW mentioned team's recommendation for pt to be wc level at home and for services to follow. SW to continue to follow to assist with safe dc planning.
--- NOTE | 2017-12-13 18:25 | NUR ---
ASSUMED CARE AT 0730 PATIENT ALERT/ORIENTED, NO COMPLAINTS OF PAIN THIS SHIFT, USES ICE PACK TO RIGHT KNEE NEEDED, UP WITH ASSIST OF ONE AND WALKER/GAIT BELT. HOURLY ROUNDING COMPLETED, BED/CHAIR ALARMS IN PLACE, CALL LIGHT IN REACH, TO DINING ROOM FOR MEALS. PARTICIPATED IN ALL THERAPIES TODAY
[2017-12-13 20:45] VITALS: BP 125/60
--- NOTE | 2017-12-14 01:13 | NUR ---
ASSUMED CARE @ .READING POCKET BOOK IN BED W/ HOB UP.ON HIS BACK. URINAL W/IN REACH.EDEMA-+1 PITTING ANKLES.REFUSED HEELS OFF BED-NOT RED.BED ALARM PUT ON @ 2049.WANTS DOOR CLOSED & ALL LIGHTS OFF @ NIGHT.REFUSED TYLENOL ES SCHEDULED @ 2199 & HS DOSE HYDROCORTISONE CREAM.DOES NOT WANT TO BE AWAKENED TO TURN.SEE POSITION CHANGE CHARTING.MOISTURE BARRIER CREAM APPLIED TO DRY PINK AREA RIGHT BUTTOCK @ 2019.WAS TOLD BY DAY RN TO KEEP PULL UPS FOR NIGHT SINCE WAS GIVEN MAG CITRATE ON DAY SHIFT.PICC LINE FLUSHED W/ 10 ML NS @ 19-12/14-.NURSE EMPTIES URINAL @ NIGHT.ON HOURLY ROUNDS.
--- NOTE | 2017-12-14 05:11 | NUR ---
SLEEPING SINCE 2139.REFUSED HS SNACK.BRP PER W/C @ 020.HAD HUGE,FORMED BM X1. TRANSFERS W/ 2 PEOPLE @ NIGHT W/ GB & WALKER.ABLE TO DO TOILET HYGIENE.TANYA W/ PULLING DOWN/UP PULL UPS.PULL UPS CHANGED @ 199.TURNED TO LEFT SIDE @ 209.REQUESTED ICE PACKS TO RIGHT KNEE @ 214 & APPLIED.USED URINAL X4.TO DC BENNIE TODAY-12/14-MONDAY.
[2017-12-14 08:05] VITALS: BP 117/72
--- NOTE | 2017-12-14 16:32 | NUR ---
PT ALERT AND ORIENTED X 4. HARD OF HEARING. PICC LINE PATENT AND FLUSHED WITHOUT DIFFICULTY. UNABLE TO GET BLOOD RETURN. BENNIE REMOVED FROM RIGHT KNEE. NO DRAINAGE NOTED. COVERED WITH SILVER BORDER DRESSING. UP IN WHEEL CHAIR DURING DAY FOR THERAPIES. PT HAD NO C/O PAIN IN AFTERNOON. APPLIED PERSONAL ICE PACKS FOR RIGHT KNEE. VS STABLE. HOURLY ROUNDS MAINTAINED. PT WILL USE CALL LIGHT FOR ASSISTANCE. CALL LIGHT WITHIN REACH. NURSING WILL CONTINUE TO MONITOR.
[2017-12-14 20:40] VITALS: BP 122/70
--- NOTE | 2017-12-15 01:28 | NUR ---
ASSUMED CARE @ 1919-12/14-.AWAKE IN BED W/ HOB UP.READING POCKET BOOK. EDEMA-+1 PITTING FEET & ANKLES.BED ALARM PUT ON @ 2039.SEE PAIN MANAGEMENT @ 2038.REQUESTED ICE PACKS TO RIGHT KNEE & APPLIED @ 2055.MIDLINE CATHETER LEFT UPPER ARM FLUSHED W/ 10 ML NS @ 2040.PRN MOISTURE BARRIER CREAM APPLIED TO DRY,PINK/RED AREA RIGHT BUTTOCK @ 2049.SEE POSITION CHANGE CHARTING.TURNED SELF @ 2199 & 99-12/15-MONDAY.URINAL W/IN REACH.WANTS ALL LIGHTS OFF & DOOR CLOSED @ NIGHT.ON HOURLY ROUNDS.
[2017-12-15 04:51] LABS: HEMATOCRIT 32.1 % (42.0-52.0); HEMOGLOBIN 10.4 gm/dL (14.0-18.0); MCH 31.2 pg (26.0-34.0); MCHC 32.5 g/dL (28.0-37.0); MCV 96.1 fL (80.0-100.0); MPV 7.6 fl. (7.2-11.1); RBC 3.34 mil/uL (4.50-6.00); RDW-CV 15.4 % (10.5-14.5)
[2017-12-15 05:08] LABS: ALBUMIN 3.1 g/dL (3.4-5.0); CALCIUM 8.4 mg/dL (8.5-10.1); CREATININE 0.8 mg/dL (0.6-1.3); MAGNESIUM 2.3 mg/dL (1.8-2.4); POTASSIUM 4.4 mmol/L (3.5-5.1); TOTAL BILIRUBIN 0.3 mg/dL (<0.1-1.0); TOTAL PROTEIN 6.6 g/dL (6.4-8.2)
--- NOTE | 2017-12-15 05:35 | NUR ---
SLEEPING SINCE 2200 & SLEPT GOOD ALL NIGHT.TURNS SELF @ NIGHT.REFUSED HS SNACK.USED URINAL X2 DURING NIGHT.CONTINOUS ICE PACKS ALL NIGHT.
[2017-12-15 08:00] VITALS: BP 123/69
[2017-12-15 12:37] LABS: URINE BILIRUBIN NEGATIVE (Negative); URINE BLOOD 3+ (Negative); URINE CLARITY CLEAR; URINE COLOR YELLOW; URINE GLUCOSE-RANDOM NEGATIVE (Negative); URINE KETONES TRACE (Negative); URINE PROTEIN 2+ (Negative); URINE SPECIFIC GRAVITY 1.025 (1.005-1.030); URINE UROBILINOGEN 0.2 E.U./dl (0.2-1.0)
[2017-12-15 12:38] LABS: URINE LEUKOCYTES-REFLEX 3+ (Negative); URINE NITRITE-REFLEX POSITIVE (Negative)
[2017-12-15 12:44] LABS: SQUAMOUS 0-3 Few /LPF (0-3); URINE WBC-REFLEX >25 Many /HPF (0-5)
[2017-12-15 12:45] LABS: CASTS None Seen /LPF (None Seen); CRYSTALS None Seen /LPF (None Seen); MUCUS 0-3 Light strn/LPF (None Seen); URINE RBC 3-10 Few /HPF (0-2)
--- NOTE | 2017-12-15 14:26 | NUR ---
PATIENT REQUESTED A REWEIGH FROM THIS MORNING. NIGHT NURSE DID STATE THAT THE BED HAD NOT BEEN RECALIBRATED BEFORE WEIGHT. AM WT 258 LB; WT AT 1425: 236 LB, WT LAST WEEK WAS 241 LB
--- NOTE | 2017-12-15 17:54 | NUR ---
ASSUMED CARE AT 0730 PATIENT ALERT/ORIENTED, NO COMPLAINTS OF PAIN THIS SHIFT, DOES USE ICE PACKS TO RIGHT KNEE AFTER THERAPY, UP WITH ASSIST OF ONE AND WALKER/GAIT BELT, BED/CHAIR ALARMS IN PLACE, CALL LIGHT IN REACH, HOURLY ROUNDING COMPLETED, COMPLETED ALL THERAPIES TODAY. TO DINING ROOM FOR MEALS.
[2017-12-15 20:00] VITALS: BP 121/62
--- NOTE | 2017-12-16 05:57 | NUR ---
ASSUMED CARE AT 1930. PATIENT ALREADY IN BED AT CHANGE OF SHIFT. REFUSES ASSIST WITH TURNS, DOES TURN SELF AT TIMES. REFUSED TO BE AWAKENED FOR TURNS. TENDS TO LIE WITH LEFT BUTTOCK OFF THE BED. REFUSES HEEL OFFLOADING, NEITHER PINK. MOISTURE BARRIER APPLIED TO BILAT BUTTOCKS, RT BUTTOCK HEALING. [place] DRESSING TO RT KNEE C/D/I. ICE PACKS APPLIED TO KNEE PER REQUEST. TAKES PILLS ABOUT 4 AT A TIME WITH WATER. VOIDS PER URINAL, NURSING EMPTIES. CLOUDY SHANELL URINE AT TIMES, OTHER TIMES CLEARER. REFUSED HS SNACK. TAKES APAP SCHEDULED. MIDLINE TO EVELYNE INTACT, DRESSING C/D/I. HOURLY ROUNDS CONTINUE. BED ALARM ON. CALL LITE IN REACH.
[2017-12-16 07:30] VITALS: BP 116/63
--- NOTE | 2017-12-16 14:27 | NUR ---
ASSUMED CARE AT 0730. ALERT ORIENTED PLEASANT COOPERATIVE. HX OF RTK REVISION. WBATRLE. TRANSFERS WITH SBA G BELT FROM W/C TO TOILET HAD A MOD BM THIS A.M. ABLE TO DO HYGEINE AND CLOTHING ADJUSTMENTS. VOIDED X 2 PER URINAL WHILE IN W/C. DENIES PAIN OR CONCERNS. PT. HAS BEEN PARTICIPATING IN THERAPIES THIS A.M. AFTER A.M. P.T. SESSION PT. HAS HAD MOD AMT. SEROUS DRAINAGE FROM PROXIMAL END OF INCISION. OTHERWISE HEALED INCISION, BUT 1/2 INCH AREA PROXIMAL END OPEN DRESSING CHANGED X 2 PT. DENIES PAIN BUT IS EXPERIENCING SPASMS RT. LEG. SCHEDULED TYLENOL AND FLEXERIL GIVEN AT 1400. DR. ELLYN KEMP ANSWERING SERVICE WAS CALLED LEFT MESSAGE SURGEON WHO SAW MR. FLOREZ AT [facility]. RESTING IN BED READING THIS AFTERNOON. USES CALL LIGHT APPROPRIATELY FOR ASSIST. FEEDS SELF APPETITE GOOD. PLEASANT COOPERATIVE.
--- NOTE | 2017-12-16 15:39 | NUR ---
PTS. DRESSING IS AN ABD PAD HAS SOME DRAINAGE BUT IS CONTAINED. PILLOW PLACED TO ELEVATE KNEE DENIES PAIN. NO RETURN CALL YET FROM SURGEON, DR. Nabeel DECKER WAS NOTIFIED ORDERS RECEIVED.
--- NOTE | 2017-12-16 16:31 | NUR ---
DR. KEMP CALLED AT 1620 WAS GIVEN INFORMATION RE SEROUS DRAINAGE HE WANTS US TO MONITOR AND CHANGE DRESSINGS PRN FEELS ONCE THE DRAINAGE IS RELEASED THERE SHOULD BE NO ISSUES. CONTINUE TO MONITOR. HERE VISITING LATE AFTERNOON.
[2017-12-16 20:00] VITALS: BP 101/74
[2017-12-17 05:01] LABS: ABSOLUTE BASOPHILS 0.1 thou/uL (0.0-0.2); ABSOLUTE EOSINOPHILS 0.3 thou/uL (0.0-0.7); ABSOLUTE MONOCYTES 1.1 thou/uL (0.0-1.2); ABSOLUTE NEUTROPHILS 6.4 thou/uL (1.6-8.1); BASOPHILS 0.7 %; EOSINOPHILS 3.5 %; HEMATOCRIT 32.2 % (42.0-52.0); HEMOGLOBIN 10.8 gm/dL (14.0-18.0); LYMPHOCYTES 11.6 %; MCH 32.2 pg (26.0-34.0); MCHC 33.4 g/dL (28.0-37.0); MCV 96.3 fL (80.0-100.0); MONOCYTES 12.3 %; MPV 8.5 fl. (7.2-11.1); NUCLEATED RBCS 0 /100WBC; PLATELET COUNT* 270 thou/uL (150-400); POLYS 71.9 %; RBC 3.35 mil/uL (4.50-6.00); RDW-CV 15.4 % (10.5-14.5); WBC 8.9 thou/uL (4.0-11.0)
--- NOTE | 2017-12-17 05:34 | NUR ---
ASSUMED CARES AT 1920. ALERT AND ORIENTED. COOPERATIVE. C/O RIGHT KNEE PAIN. TYLENOL AND ICE PACK GIVEN. TAKES PILLS WHOLE WITHOUT ISSUES. DRESSING TO RIGHT KNEE INTACT WITH MINIMAL DRAINAGE. BARRIER CREAM APPLIED TO REDNESS ON BUTTOCKS. MIDLINE CATHETER EVELYNE FLUSHING WELL. PT USED URINAL AND RN EMPTIED. SLEPT OFF AND ON. CALL LIGHT IN REACH AND BED ALARM ON.
[2017-12-17 06:46] LABS: ESR (SEDRATE) 60 mm/hr (0-20)
[2017-12-17 08:02] VITALS: BP 117/68
--- NOTE | 2017-12-17 15:24 | NUR ---
ASSUMED CARE AT 0730. ALERT AND ORIENTED, PLEASANT COOPERATIVE. HX OF RTK REVISION. DISTAL END OF INCISION C/D/I PROXIMAL END HAS MEPILEX DRESSING WITH OUT DRAINAGE. DENIES PAIN OR CONCERNS. PT. DID SPONGE BATH AT SINK WITH SET UP. DID DRESSING AND GROOMING NEEDED ASSIST WITH THREADING SWEATS OVER YELLOW SOCKS OTHERWISE NO ASSIST NEEDED. REQUESTED ICE PACK TO RT. KNEE THIS AFTERNOON. TO DR FOR LUNCH MEAL PER W/C PROPELLS SELF. AND FAMILY HERE VISITING THIS AFTERNOON. APPETITE GOOD TAKES MEDS WITHOUT DIFFICULTY. USES CALL LIGHT APPROPRIATELY FOR ASSISTANCE. CHAIR ALARM ON FOR PT. SAFETY.
[2017-12-17 20:00] VITALS: BP 128/61
--- NOTE | 2017-12-18 05:37 | NUR ---
ASSUMED CARES AT 1920. ALERT AND ORIENTED. PLEASANT. S/P RIGHT KNEE REVISION SURGERY. WBAT RLE. ALREADY IN BED. TYLENOL AND ICE PACK GIVEN FOR RIGHT KNEE PAIN. TAKES PILLS WHOLE WITHOUT ISSUES. USED URINAL AND RN EMPTIED. INITALLY EARLY IN NIGHT DRESSING TO RIGHT KNEE INTACT AND HAD SMALL DRAINAGE. THIS AM DRESSING WAS SATURATED WITH SEROUS SANGIUNOUS DRAINAGE. PT SAYS THAT HE HAD BEEN TURNING SELF IN BED DURING THE NIGHT. SITE CLEANED AND GAUZE WITH ABD PAD APPLIED. SLEPT SOME. USING CALL LIGHT APPROPRIATELY.
[2017-12-18 07:55] VITALS: BP 141/66
--- NOTE | 2017-12-18 18:00 | NUR ---
ASSUMED CARE AT 0730 PATIENT ALERT/ORIENTED, NO COMPLAINTS OF PAIN THIS SHIFT, DOES USE ICE PACK TO RIGHT KNEE, PARTICIPATED IN ALL THERAPIES TODAY, TO DINING ROOM FOR MEALS, BED/CHAIR ALARMS IN PLACE, CALL LIGHT IN REACH, HOURLY ROUNDING COMPLETED. DRESSING TO RIGHT KNEE CLEAN/DRY/INTACT
[2017-12-18 19:40] VITALS: BP 137/71
[2017-12-19 04:01] LABS: HEMOGLOBIN 10.7 gm/dL (14.0-18.0); MCH 31.1 pg (26.0-34.0); MCHC 32.5 g/dL (28.0-37.0); MCV 95.8 fL (80.0-100.0); MPV 8.4 fl. (7.2-11.1); RBC 3.44 mil/uL (4.50-6.00); WBC 6.2 thou/uL (4.0-11.0)
[2017-12-19 04:34] LABS: CALCIUM 8.6 mg/dL (8.5-10.1); CREATININE 0.9 mg/dL (0.6-1.3)
--- NOTE | 2017-12-19 05:56 | NUR ---
PT SLEPT MOST OF SHIFT. ASSESSMENT DOCUMENTED. MEDS GIVEN PER E-MAR. MIDLINE PATENT. PT STATED HE HAD MINIMAL PAIN, TYLENOL AND ICE PACKS USED WITH RELIEF. PT REPOSITIONED SELF IN BED THIS SHIFT. PT VOIDED PER URINAL THROUGH NIGHT. WILL CONTINUE WITH PLAN OF CARE.
[2017-12-19 07:40] VITALS: BP 119/73
--- NOTE | 2017-12-19 14:24 | NUR ---
SW called pt in preparation for team conference tomorrow and for pt safe dc planning also for tomorrow. Pt did not answer so SW left a detailed message regarding dc planning and possible SNF vs home with was discussed. SW to send referral to pt/ preference of [facility] for a possible plan b if needed. SW to continue to follow to assist with safe dc planning.
--- NOTE | 2017-12-19 17:12 | NUR ---
pt has participated with therapies and calls for assist as needs.schedualed plain tylenol ex. given with good effect and use of cold packs as desired. dressing to rt knee dry and intact. pt transferrs with hopping, gaitbelt and walker and min assist of 1. pt is continent of bladder and has had bm this am. pt remains alert and orientated and continues to progress towards goals. hourly rounding continues.
[2017-12-19 20:00] VITALS: BP 135/67
--- NOTE | 2017-12-20 05:19 | NUR ---
ASSUMED CARE AT 1920. ALERT AND ORIENTED. PLEASANT. ALREADY IN BED. MIDLINE CATHETER FLUSHING WELL. PT USED URINAL AND RN EMPTIED. C/O MORE PAIN TO RIGHT KNEE. PT HAD BEEN TRYING TO STRAIGHTEN LEG DURING THE NIGHT. TYLENOL AND ICE PACKS GIVEN. REFUSED TO TAKE OXY IR DUE TO POSSIBLE CONSTIPATION. DRESSING TO RIGHT KNEE INTACT WITH MINIMAL SEROUS DRAINAGE NOTED. BARRIER CREAM APPLIED TO BUTTOCKS. PT TURNS SELF IN BED. CALL LIGHT IN REACH AND BED ALARM ON.
[2017-12-20 08:00] VITALS: BP 129/73
--- NOTE | 2017-12-20 14:31 | NUR ---
Team discussed pt progress during therapies this week at team conference today. Team suggesting pt be able to dc home with on Monday with family training, and recommending OP therapies if possible. SW called and spoke with pt to review team conference summary and discuss safe dc planning. Pt was very hesitant for pt to return home yet and said she would rather pt be able to dc to [facility] for a while and continue to work towards ambulation with RW at home rather than wc level. Pt said reiterated that she cannot physically assist pt and that she was fearful pt would fall at home. MATHEW and Dr Lopez met with pt to review team conference summary and pt also felt he needed more time in therapy and wanted to dc to [facility]. MATHEW spoke with admissions at [facility] who accepted pt referral and could accept pt today. Transportation arranged for 18:00 to 18:30. MATHEW called pt and informed of final safe dc plan and timing. MATHEW faxed final orders, med list and instructions to [facility]. Chart copied. Pt nurse aware. [facility] ph [phone].
[2017-12-20] MEDS ORDERED: FLEXERIL PO (16:22)
[2017-12-20] MEDS ORDERED: HYDROCORTISONE30 G9 TOP (16:29)
[2017-12-20] MEDS ORDERED: CIPRO500 MG PO (16:36)
[2017-12-20 16:46] VITALS: BP 129/73
--- NOTE | 2017-12-20 17:50 | NUR ---
DISCHARGE INSTRUCTIONS PROVIDED TO PT AND HIS . PT'S PACKED HIS BELONGINGS AND PLANS TO FOLLOW THE WHEELCHAIR VAN AND DELIVER THEM TO [facility]. I ATTEMPTED TO CALL REPORT TO [facility] SEVERAL TIMES BUT NOBODY ANSWERED THE PHONE. PT IS WAITING FOR TRANSPORTER AT THIS TIME.
--- NOTE | 2017-12-20 18:05 | NUR ---
PT ASSISTED INTO TRANSPORTERS WHEELCHAIR, PT DISCHARGE TO [facility] IN STABLE CONDITION.
--- NOTE | 2017-12-27 13:47 | D ---
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 He is being discharged to skilled level of care for continued rehabilitation. He is a full code. REHABILITATION PROGNOSIS: Good. He will continue with physical and occupational therapy as well as speech and language pathology as well as E-stim on the right lower extremity. Wound care has been stable; however, monitor for drainage. He will need to follow up with his orthopedic surgeon at [facility] within 1 week's time and his primary care physician within 1 week of discharge. MEDICATIONS: Reviewed and reconciled by myself and are available in the MAR. DISCHARGE PHYSICAL EXAMINATION: GENERAL: Alert, oriented, in no apparent distress. VITAL SIGNS: Reviewed and are stable. HEENT: Head atraumatic, normocephalic. Pupils equal, round, reactive. ABDOMEN: Soft, nontender, nondistended. NEUROLOGIC: Cranial nerves 2-12 are grossly intact. No focal neuro deficits, 5/5 strength in the bilateral upper and lower extremities. SKIN: Warm and dry. No rashes or lesions noted. Incision is dry. No drainage noted. <ELECTRONICALLY SIGNED> By: Hanh Lopez DO 12/27/17 [id number] Lopez DO /nt
== END 2017-12-20 18:19 | DRG 556 ==
LOC: M.REH 16:11
PROVIDERS: Family Medicine; Internal Medicine; ADMIT Physical Medicine & Rehabilitation
DX: M25.561 Pain in right knee (principal); T84.53XA Infection and inflammatory reaction due to internal right knee prosthesis, initial encounter; N39.0 Urinary tract infection, site not specified; I10 Essential (primary) hypertension; M10.9 Gout, unspecified; G47.33 Obstructive sleep apnea (adult) (pediatric); F41.9 Anxiety disorder, unspecified; Z96.653 Presence of artificial knee joint, bilateral; G89.29 Other chronic pain; E55.9 Vitamin D deficiency, unspecified; Y83.1 Surgical operation with implant of artificial internal device as the cause of abnormal reaction of the patient, or of later complication, without mention of misadventure at the time of the procedure; R53.81 Other malaise; K59.00 Constipation, unspecified; M17.11 Unilateral primary osteoarthritis, right knee; Z90.49 Acquired absence of other specified parts of digestive tract; Z82.49 Family history of ischemic heart disease and other diseases of the circulatory system; Z79.899 Other long term (current) drug therapy; Z79.01 Long term (current) use of anticoagulants; Y92.89 Other specified places as the place of occurrence of the external cause